=== PATIENT | male | born 1995 | race Caucasian/White ===

== ENCOUNTER 2017-05-09 22:14 | Emergency (ER) | payer BC, MEDICAID ==
[2017-05-09] MEDS ORDERED: predniSONE 20 MG TABLET PO ONE (22:40)
--- NOTE | 2017-05-09 22:40 | ERNOTE ---
Integumentary HPI - Narrative Date of Service: 05/09/17 - General Presenting Symptoms: insect bite Time Seen by Provider: 05/09/17 22:46 Source: patient Exam Limitations: no limitations - Immun/Allergies/Home Medications Immunizations: IMMUNIZATION HX Immunizations Up to Date No Allergies/Adverse Reactions: Allergies Allergy/AdvReac Type Severity Reaction Status Date / Time No Known Allergies Allergy Unverified 05/09/17 22:27 Home Medications: HOME MEDICATIONS Allergy 05/09/17 [Last Taken Unknown] predniSONE [Prednisone] 20 mg PO BID #8 tablet 05/09/17 [Last Taken Unknown] - History of Present Illness Narrative: 21 Year old that went to a friend's hours last night and noted the onset of a rash. Date (Duration): 05/09/17 Time (Timing): 22:43 Location: Reports: generalized Quality: Reports: itching Severity: moderate Exposure: Reports: insect bite/spider - bed bugs Modifying Factors - (Improves): Reports: nothing - Has been using a topical cream Modifying Factors - (Worsens): Reports: nothing Review of Systems - Review of Systems Constitutional: Present: no symptoms reported EYE: Present: no symptoms reported ENT: Present: no symptoms reported Respiratory: Present: no symptoms reported Cardiology: Present: no symptoms reported Gastrointestinal/Abdominal: Present: no symptoms reported Genitourinary: Present: no symptoms reported Musculoskeletal: Present: no symptoms reported Skin: Present: See HPI Neurological: Present: no symptoms reported Endocrine: Present: no symptoms reported Hematologic/Lymphatic: Present: no symptoms reported - Patient's Past Medical History Patient History - Medical: No pertinent hx - Social History Living Situations: home Psych History: No pertinent hx Smoking Status: Never smoker - Immunizations Immunizations Up to Date: No Physical Exam - Physical Exam General Appearance: Present: no apparent distress Head Exam: Present: normal inspection Eye Exam: Normal inspection: bilateral Ears, Nose, Throat: Present: normal ENT inspection Neck: Present: normal inspection Respiratory: Present: no respiratory distress Cardiovascular/Chest: Present: regular rate, rhythm Gastrointestinal/Abdominal: Present: normal bowel sounds Back Exam: Present: normal range of motion Extremity Exam: Present: normal inspection Neurological Exam: Present: alert, oriented Skin Exam: Present: skin rash - generalized ED Progress - Vital Signs Vital Signs: Vital Signs 05/09/17 22:24 Temperature 36.9 C Pulse Rate 97 Respiratory 12 Rate Blood Pressure 125/67 O2 Sat by Pulse 99 Oximetry - Progress/Reassessment Chief Complaint: Insect Bite Departure Clinical Impression: Dermatitis - Departure Disposition: Home self-care Condition: Good Instructions: Contact Dermatitis, [id number] Print Language: [place] Additional Instructions: You can take Benadryl 25 mg by mouth every six hours as needed for itching. Prescriptions: predniSONE [Prednisone] 20 mg PO BID #8 tablet
[2017-05-09] MEDS ORDERED: predniSONE 20 MG TABLET ONE (22:41)
[2017-05-09 22:59] VITALS: BP 132/77
== END 2017-05-09 22:55 | disposition home or self-care (01) ==
LOC: ER 22:14
DX: L30.9 Dermatitis, unspecified (principal)